=== PATIENT | female | born 1980 | race Two or more races ===

== ENCOUNTER 2019-10-27 09:58 | Inpatient (IN) | payer OTHER ==
[~2019-10-27] VITALS: Ht 152.4 cm; Wt 68.0 kg
== END 2019-10-29 12:46 | DRG 743 ==
LOC: CIR.AMB 09:58 → OB/GYN 15:22 → O/R 15:22 → OB/GYN 15:37
PROVIDERS: ADMIT Obstetrics & Gynecology Obstetrics; ATTEND Obstetrics & Gynecology Obstetrics
PROC: 0UB70ZZ Excision of Bilateral Fallopian Tubes, Open Approach (ICD-10-PCS; 2019-10-27)
PROC: 0UT00ZZ Resection of Right Ovary, Open Approach (ICD-10-PCS; principal; 2019-10-27 09:00)
DX: Z30.2 Encounter for sterilization (principal); D27.0 Benign neoplasm of right ovary